=== PATIENT | female | born 1970 | race Caucasian/White ===

== ENCOUNTER 2018-06-24 17:30 | Emergency (ER) | payer BC ==
[~2018-06-24] VITALS: Ht 157.5 cm; Wt 61.4 kg
[2018-06-24 17:58] VITALS: Ht 157.5 cm; Wt 61.4 kg
[2018-06-24] MEDS ORDERED: DULCOLAX10 MG/SUPP RC (18:01)
[2018-06-24] MEDS ORDERED: MIRALAX17 GM PO (18:02)
[2018-06-24] MEDS ORDERED: HYDROCHLOROTHIA25 MG PO (18:02)
[2018-06-24] MEDS ORDERED: TOPAMAX50 MG PO (18:03)
[2018-06-24 18:36] LABS: BASOPHILS 0.9 % (0-2); EOSINOPHILS 0.5 % (0-7); HEMATOCRIT 41.3 % (36.0-48.0); HEMOGLOBIN 14.8 g/dL (12-16); IMMATURE GRANULOCYTES 0.5 % (0-5); LYMPHOCYTES 37.6 % (15-50); MCH 31.2 pg (26.0-34.0); MCHC 35.8 g/dL (31.0-37.0); MCV 87.1 fL (80.0-100.0); MEAN PLATELET VOLUME 10.4 fL (7.4-10.4); MONOCYTES 11.8 % (2-11); NEUTROPHILS 48.7 % (40-80); PLATELET COUNT 192 10x3/uL (130-400); RBC 4.74 10x6/uL (4.00-5.40); RDW 13.1 % (11.5-14.5); WBC 8.2 10x3/uL (4.8-10.8)
[2018-06-24 18:49] LABS: APPEARANCE CLEAR (CLEAR); BILIRUBIN NEGATIVE (NEGATIVE); COLOR YELLOW (YELLOW); GLUCOSE NEGATIVE (NEGATIVE); KETONE SMALL mg/dL (NEGATIVE); NITRITE NEGATIVE (NEGATIVE); PROTEIN NEGATIVE (NEGATIVE); UROBILINOGEN NORMAL (NORMAL)
[2018-06-24 20:03] LABS: ALBUMIN 4.5 g/dL (3.4-5.0); ALKALINE PHOSPHATASE 39 U/L (46-116); ALT (SGPT) 17 U/L (10-68); AMYLASE - SERUM 21 U/L (25-115); BILIRUBIN - TOTAL 1.52 mg/dL (0.2-1.3); CALC OSMOLALITY 271 mosm/kg (275-300); CALCIUM 9.2 mg/dL (8.5-10.1); CARBON DIOXIDE 23.9 mmol/L (21.0-32.0); CHLORIDE - SERUM 99 mmol/L (98-107); CREATININE - SERUM 0.6 mg/dL (0.6-1.3); LIPASE 107 U/L (73-393); POTASSIUM - SERUM 3.2 mmol/L (3.5-5.1); PROTEIN - SERUM 8.1 g/dL (6.4-8.2); SODIUM 138 mmol/L (136-145); UREA NITROGEN 7 mg/dL (7-18); eGFR NON AFRICAN AMERICAN > 90 mL/min (90-120)
[2018-06-24 20:09] LABS: GLUCOSE 69 mg/dL (74-106)
[2018-06-25 00:05] VITALS: BP 121/77
== END 2018-06-25 00:07 | disposition home or self-care (01) ==
LOC: D.ER 17:30
PROVIDERS: Family Medicine
DX: R10.11 Right upper quadrant pain (principal); E80.6 Other disorders of bilirubin metabolism; R11.0 Nausea